=== PATIENT | male | born 1970 | race Hispanic/Latino ===

== ENCOUNTER 2018-08-03 15:33 | Emergency (ER) | payer SELFPAY ==
[2018-08-03 15:54] LABS: BASOPHILS % (AUTO) 0.8 % (0.0-5.0); EOSINOPHILS % (AUTO) 1.9 % (0.0-8.0); HEMATOCRIT 44.7 % (42-54); LYMPHOCYTES % (AUTO) 26.8 % (21.0-51.0); MEAN CORPUSCULAR HEMOGLOBIN 27.6 pg (27.0-33.0); MEAN CORPUSCULAR HGB CONC 33.2 g/dL (32.0-36.0); MEAN CORPUSCULAR VOLUME 83.2 fL (79-99); MONOCYTES % (AUTO) 6.5 % (3.0-13.0); PLATELET COUNT (AUTO) 269 K/uL (130-400); RED BLOOD CELL COUNT(AUTO) 5.38 MIL/uL (4.50-6.20); RED CELL DISTRIBUTION WIDTH 13.2 % (11.0-15.5); WHITE BLOOD COUNT (AUTO) 8.7 K/uL (4.8-10.8)
[2018-08-03] MEDS ORDERED: SODIUM CHLORIDE 0.9% 1000ML 1,000 ML IV ONE ×2 (16:02→17:20)
[2018-08-03 16:13] LABS: APPEARANCE,URINE CLEAR (CLEAR); BILIRUBIN,URINE NEGATIVE (NEGATIVE); COLOR,URINE YELLOW (YELLOW); GLUCOSE, URINE (UA) >=1000 mg/dL (NEGATIVE); KETONES,URINE NEGATIVE (NEGATIVE); LEUKOCYTE ESTERASE ,URINE NEGATIVE (NEGATIVE); NITRATE,URINE NEGATIVE (NEGATIVE); OCCULT BLOOD,URINE NEGATIVE (NEGATIVE); PROTEIN,URINE NEGATIVE (NEGATIVE); UROBILINOGEN,URINE 0.2 mg/dL (0.2-1.0)
[2018-08-03 16:40] LABS: AMPHET/METH SCREEN,URINE NEGATIVE (NEGATIVE); BARBITURATE SCREEN, URINE NEGATIVE (NEGATIVE); BENZODIAZEPINES SCREEN,URINE NEGATIVE (NEGATIVE); CANNABINOID SCREEN,URINE NEGATIVE (NEGATIVE); COCAINE SCREEN,URINE NEGATIVE (NEGATIVE); OPIATE SCREEN,URINE NEGATIVE (NEGATIVE); PHENCYCLIDINE SCREEN,URINE NEGATIVE (NEGATIVE)
[2018-08-03 16:54] LABS: ALBUMIN 3.7 g/dL (3.5-5.0); BILIRUBIN,TOTAL 0.3 mg/dL (0.2-1.0); CREATININE 0.9 mg/dL (0.5-1.5); POTASSIUM 3.9 mmol/L (3.5-5.1); TOTAL PROTEIN, SERUM 7.5 g/dL (6.0-8.3)
[2018-08-03 16:56] LABS: RBC,URINE None Seen /HPF (0-1)
[2018-08-03 16:57] LABS: BACTERIA,URINE None Seen /HPF (None Seen); SQUAMOUS EPITHELIAL CELL,UR None Seen /HPF (0-2); WBC,URINE 0-1 /HPF (0-1)
== END 2018-08-03 19:14 | disposition home or self-care (01) ==
LOC: EDH 15:33
DX: E11.65 Type 2 diabetes mellitus with hyperglycemia (principal); R03.0 Elevated blood-pressure reading, without diagnosis of hypertension; R74.8 Abnormal levels of other serum enzymes
CPT/HCPCS: 36415; 80053; 80305; 81001; 82550 ×2; 82948 ×2; 83874 ×2; 84484; 85025; 93005; 96360; 96361; 99285; J7030 ×2

== ENCOUNTER 2023-05-04 15:49 | Emergency (ER) | payer OTHER ==
[~2023-05-04] VITALS: Ht 172.7 cm; Wt 85.3 kg
[2023-05-04 16:22] LABS: BASOPHILS # (AUTO) 0.05 K/uL (0.00-0.20); BASOPHILS % (AUTO) 0.4 % (0.0-5.0); EOSINOPHILS # (AUTO) 0.35 K/uL (0.00-0.70); EOSINOPHILS % (AUTO) 2.6 % (0.0-8.0); HEMATOCRIT 36.9 % (42-54); IMMATURE GRANULOCYTE ABSOLUTE 0.06 K/uL (0-1); LYMPHOCYTES # (AUTO) 3.7 K/uL (1.0-4.8); LYMPHOCYTES % (AUTO) 27.3 % (21.0-51.0); MEAN CORPUSCULAR HGB CONC 32.5 g/dL (32.0-36.0); MEAN CORPUSCULAR VOLUME 79.9 fL (79-99); MONOCYTES # (AUTO) 0.8 K/uL (0.1-1.0); MONOCYTES % (AUTO) 6.2 % (3.0-13.0); NEUTROPHILS # (AUTO) 8.5 K/uL (1.8-7.7); NEUTROPHILS % (AUTO) 63.1 % (40.0-77.0); PLATELET COUNT (AUTO) 309 K/uL (130-400); RED BLOOD CELL COUNT(AUTO) 4.62 MIL/uL (4.50-6.20); RED CELL DISTRIBUTION WIDTH 14.9 % (11.0-15.5); WHITE BLOOD COUNT (AUTO) 13.5 K/uL (4.8-10.8)
[2023-05-04] MEDS ORDERED: HYDROXYZINE 25 MG TABLET PO ONE (16:30)
[2023-05-04 16:33] LABS: CREATININE 0.8 mg/dL (0.5-1.5)
[2023-05-04 16:39] LABS: ALBUMIN 3.5 g/dL (3.5-5.0); BILIRUBIN,TOTAL 0.5 mg/dL (0.2-1.0); MAGNESIUM 1.3 mg/dL (1.80-2.40); TOTAL PROTEIN, SERUM 6.9 g/dL (6.0-8.3)
[2023-05-04 16:43] LABS: APPEARANCE,URINE CLEAR (CLEAR); BILIRUBIN,URINE NEGATIVE (NEGATIVE); COLOR,URINE YELLOW (YELLOW); GLUCOSE, URINE (UA) NEGATIVE (NEGATIVE); KETONES,URINE NEGATIVE (NEGATIVE); LEUKOCYTE ESTERASE ,URINE NEGATIVE Leu/uL (NEGATIVE); NITRATE,URINE NEGATIVE (NEGATIVE); OCCULT BLOOD,URINE NEGATIVE (NEGATIVE); PH,URINE 5.5 (5.0-8.0); PROTEIN,URINE 10 mg/dL (NEGATIVE); UROBILINOGEN,URINE 0.2 mg/dL (0.2-1.0)
[2023-05-04 16:44] LABS: ADD UA MICROSCOPIC YES
[2023-05-04 16:47] LABS: BACTERIA,URINE RARE /HPF (None Seen); MUCUS,URINE RARE LPF (None Seen); WBC,URINE 0-1 /HPF (0-1)
[2023-05-04] MEDS ORDERED: 0.9%NACL 1000ML 1,000 ML IV ONE (17:00)
[2023-05-04] MEDS ORDERED: CEFTRIAXONE 1G VIAL IVPB ONE (17:00)
[2023-05-04 17:30] LABS: SARS-CoV-2, RNA, NAAT NEGATIVE SARS CoV-2 (NEGATIVE)
[2023-05-04 17:36] LABS: INFLUENZA TYPE A Negative For Type A (NEGATIVE)
[2023-05-04] MEDS ORDERED: MAGNESIUM OXIDE 400 MG TABLET PO ONE (18:00)
[2023-05-04] MEDS ORDERED: HYDR-3421 PO (18:02)
[2023-05-04 18:13] LABS: INFLUENZA TYPE B Positive For Type B (NEGATIVE)
[2023-05-04] MEDS ORDERED: OSEL75 PO (18:17)
[2023-05-04 18:42] VITALS: BP 118/68; PULSE 66; RESP 18; O2SAT 98
== END 2023-05-04 18:33 | disposition home or self-care (01) ==
LOC: EDH 15:49
DX: R21 Rash and other nonspecific skin eruption (principal); E83.42 Hypomagnesemia; I48.91 Unspecified atrial fibrillation; I10 Essential (primary) hypertension; E11.9 Type 2 diabetes mellitus without complications; E78.00 Pure hypercholesterolemia, unspecified; Z95.1 Presence of aortocoronary bypass graft; Z20.822 Contact with and (suspected) exposure to COVID-19
CPT/HCPCS: 99285; 96365; 71045; 87635; 83735; 84484; 80053; 85025; 87040 ×2; 87804 ×2; 83605; 81001; 36415; 93005; C9803; J7030; J0696

== ENCOUNTER 2024-02-10 16:50 | Emergency (ER) | payer BC, OTHER ==
[~2024-02-10] VITALS: Ht 172.7 cm; Wt 84.8 kg
[~2024-02-10 16:50] MED LIST: HYDR-3421 PO; OSEL75 PO
[2024-02-10 17:51] LABS: BASOPHILS # (AUTO) 0.04 K/uL (0.00-0.20); BASOPHILS % (AUTO) 0.3 % (0.0-5.0); EOSINOPHILS # (AUTO) 0.59 K/uL (0.00-0.70); EOSINOPHILS % (AUTO) 4.9 % (0.0-8.0); HEMATOCRIT 41.7 % (42-54); IMMATURE GRANULOCYTE ABSOLUTE 0.05 K/uL (0-1); LYMPHOCYTES # (AUTO) 2.6 K/uL (1.0-4.8); LYMPHOCYTES % (AUTO) 21.9 % (21.0-51.0); MEAN CORPUSCULAR HGB CONC 32.1 g/dL (32.0-36.0); MEAN CORPUSCULAR VOLUME 84.1 fL (79-99); MONOCYTES # (AUTO) 0.8 K/uL (0.1-1.0); MONOCYTES % (AUTO) 6.7 % (3.0-13.0); NEUTROPHILS # (AUTO) 7.9 K/uL (1.8-7.7); NEUTROPHILS % (AUTO) 65.8 % (40.0-77.0); PLATELET COUNT (AUTO) 310 K/uL (130-400); RED BLOOD CELL COUNT(AUTO) 4.96 MIL/uL (4.50-6.20)
[2024-02-10 18:06] LABS: CREATININE 0.9 mg/dL (0.5-1.3); POTASSIUM 3.9 mmol/L (3.5-5.1)
[2024-02-10 18:08] LABS: B-TYPE NATRIURETIC PEPTIDE 40 pg/mL (0-100)
[2024-02-10] MEDS ORDERED: SULF1TAB42 PO (20:04)
[2024-02-10 20:51] VITALS: BP 121/72; PULSE 86; RESP 18; O2SAT 100
[2024-02-10] MEDS: CEFTRIAXONE 1G VIAL IM ONE (20:55)
== END 2024-02-10 21:08 | disposition home or self-care (01) ==
LOC: EDH 16:50
DX: E11.621 Type 2 diabetes mellitus with foot ulcer (principal); L97.519 Non-pressure chronic ulcer of other part of right foot with unspecified severity; E78.00 Pure hypercholesterolemia, unspecified; Z90.49 Acquired absence of other specified parts of digestive tract; Z95.1 Presence of aortocoronary bypass graft
CPT/HCPCS: 99284; 96374; 93971; 80048; 83880; 85025; 87040 ×2; 83605; 36415; J0696

== ENCOUNTER 2024-04-10 13:47 | Emergency (ER) | payer BC ==
[~2024-04-10] VITALS: Ht 172.7 cm; Wt 85.3 kg
[~2024-04-10 13:47] MED LIST changes: +ACET-2806 PO; +SULF1TAB42 PO
[2024-04-10] MEDS ORDERED: GABA100C PO (16:24)
[2024-04-10] MEDS: GABAPENTIN 100 MG CAPSULE PO ONE (16:30)
[2024-04-10] MEDS: ACETAMINOPHEN 325 MG TAB PO ONE (16:31)
[2024-04-10 16:43] VITALS: BP 139/71; PULSE 82; RESP 16; O2SAT 99
[2024-04-10] MEDS: HYDROCODONE/ACETAMINOPHEN 5/325 MG TAB PO ONE (16:52)
[2024-04-10] MEDS ORDERED: GABAPENTIN 100 MG CAPSULE PO SCH (21:00)
== END 2024-04-10 18:24 | disposition home or self-care (01) ==
LOC: EDH 13:47
DX: G62.9 Polyneuropathy, unspecified (principal); L97.519 Non-pressure chronic ulcer of other part of right foot with unspecified severity; E11.621 Type 2 diabetes mellitus with foot ulcer; M79.605 Pain in left leg; I48.91 Unspecified atrial fibrillation; I10 Essential (primary) hypertension; F17.200 Nicotine dependence, unspecified, uncomplicated; Z90.49 Acquired absence of other specified parts of digestive tract; Z95.1 Presence of aortocoronary bypass graft
CPT/HCPCS: 93971

== ENCOUNTER 2024-09-13 19:24 | Emergency (ER) | payer BC ==
[~2024-09-13] VITALS: Ht 170.2 cm; Wt 86.2 kg
[~2024-09-13 19:24] MED LIST changes: -ACET-2806 PO; +AMOX1TAB15 PO; +APIX5TAB PO; +ATOR40TA71 PO; +DONE5TAB33 PO; +EMPA10TA PO; +GABA-529 PO; +GENT30OI2 TP; -HYDR-3421 PO; +METF-444 PO; +METO25TA6 PO; +NITR0.4T50 SL; -OSEL75 PO; +SILD50TA PO; -SULF1TAB42 PO; +[UNRECOGNIZED DRUG - OTHER]
[2024-09-13 19:25] VITALS: TEMP 97.8
--- NOTE | 2024-09-13 19:30 | NUR ---
UA CUP PROVIDED
--- NOTE | 2024-09-13 19:56 | EKG ---
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
[2024-09-13 20:10] LABS: APPEARANCE,URINE CLEAR (CLEAR); BILIRUBIN,URINE NEGATIVE (NEGATIVE); COLOR,URINE COLORLESS (YELLOW); GLUCOSE, URINE (UA) >=1000 mg/dL (NEGATIVE); KETONES,URINE NEGATIVE (NEGATIVE); LEUKOCYTE ESTERASE ,URINE NEGATIVE Leu/uL (NEGATIVE); NITRATE,URINE NEGATIVE (NEGATIVE); OCCULT BLOOD,URINE NEGATIVE (NEGATIVE); PROTEIN,URINE NEGATIVE (NEGATIVE); UROBILINOGEN,URINE 0.2 mg/dL (0.2-1.0)
[2024-09-13 20:12] LABS: ADD UA MICROSCOPIC YES
[2024-09-13 20:13] LABS: MUCUS,URINE RARE LPF (None Seen); WBC,URINE 0-1 /HPF (0-1)
--- NOTE | 2024-09-13 20:20 | HMCIMG ---
INDICATION: CHEST PAIN TECHNIQUE: CHEST 1VW COMPARISON: 06/06/2024 FINDINGS/IMPRESSION: No acute consolidation or pleural effusion. Cardiac silhouette is within normal limits. Mild degenerative changes of the spine. Sternotomy wires are noted.
[2024-09-13 20:29] LABS: BASOPHILS # (AUTO) 0.05 K/uL (0.00-0.20); BASOPHILS % (AUTO) 0.4 % (0.0-5.0); EOSINOPHILS # (AUTO) 0.75 K/uL (0.00-0.70); EOSINOPHILS % (AUTO) 5.4 % (0.0-8.0); HEMATOCRIT 39.4 % (42-54); IMMATURE GRANULOCYTE ABSOLUTE 0.04 K/uL (0-1); LYMPHOCYTES # (AUTO) 2.5 K/uL (1.0-4.8); LYMPHOCYTES % (AUTO) 18.1 % (21.0-51.0); MEAN CORPUSCULAR HEMOGLOBIN 26.1 pg (27.0-33.0); MEAN CORPUSCULAR HGB CONC 31.5 g/dL (32.0-36.0); MEAN CORPUSCULAR VOLUME 82.9 fL (79-99); MONOCYTES # (AUTO) 1.1 K/uL (0.1-1.0); MONOCYTES % (AUTO) 7.8 % (3.0-13.0); NEUTROPHILS # (AUTO) 9.5 K/uL (1.8-7.7); PLATELET COUNT (AUTO) 292 K/uL (130-400); RED BLOOD CELL COUNT(AUTO) 4.75 MIL/uL (4.50-6.20); RED CELL DISTRIBUTION WIDTH 12.8 % (11.0-15.5); WHITE BLOOD COUNT (AUTO) 13.9 K/uL (4.8-10.8)
[2024-09-13 20:41] LABS: CREATININE 1.4 mg/dL (0.5-1.3); POTASSIUM 3.9 mmol/L (3.5-5.1)
[2024-09-13 20:45] LABS: ALBUMIN 3.1 g/dL (3.5-5.0); BILIRUBIN,DIRECT 0.1 mg/dL (0.0-0.3); BILIRUBIN,TOTAL 0.7 mg/dL (0.2-1.0); TOTAL PROTEIN, SERUM 6.7 g/dL (6.0-8.3)
[2024-09-13 21:06] LABS: B-TYPE NATRIURETIC PEPTIDE 30 pg/mL (0-100)
[2024-09-13] MEDS ORDERED: IOHEXOL-350 75 ML VIAL IV ONE (21:33)
[2024-09-13 22:10] VITALS: BP 97/68; PULSE 97; RESP 18; O2SAT 100
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
[2024-09-13 23:22] LABS: HIV 1&2 ANTIBODY Non-Reactive (Negative)
[2024-09-13 23:23] LABS: HIV-1 p24 Antigen Non-Reactive (Negative)
--- NOTE | 2024-09-13 23:44 | HMCIMG ---
CT ABDOMEN/PELVIS W/CONTRAST HISTORY: Abdominal pain COMPARISON: None TECHNIQUE: Multiple sequential axial images of the abdomen and pelvis were obtained from the dome of the diaphragm through symphysis pubis. Patient was not given contrast through intravenous route. Oral contrast was not given. FINDINGS: No pleural effusion is seen bilaterally. There is no evidence of parenchymal disease or pulmonary nodule of the visualized lower lungs. Degenerative changes of the thoracolumbar spine are present. The heart is not enlarged. The liver, spleen, adrenal glands and pancreas are unremarkable. There is no evidence of hydronephrosis bilaterally. No evidence of renal stone is seen. Fecal material is seen in the colon. There are normal size retroperitoneal and mesenteric lymph nodes. No ascites is seen. Atherosclerotic changes are present. Appendix is not seen. Prostate measures 4.7 x 3.8 cm. There is minimal diverticulosis. Pelvic sidewalls are symmetric bilaterally. Bladder is well distended without wall thickening. IMPRESSION: 1. Fecal material is seen in the colon. There is minimal diverticulosis. CT was performed with one or more following dose reduction techniques: automated exposure control, adjustment of the mA and kv according to patient's size, or use of a iterative reconstruction technique.
[2024-09-14] MEDS ORDERED: LEVO-70 PO (00:05)
[2024-09-14] MEDS: levoFLOXacin 500 MG TABLET PO SCH (00:19)
[2024-09-14] MEDS: levoFLOXacin 500 MG TABLET ONE (00:19)
== END 2024-09-14 00:22 | disposition home or self-care (01) ==
LOC: EDH 19:24
DX: K59.00 Constipation, unspecified (principal); K57.30 Diverticulosis of large intestine without perforation or abscess without bleeding; F17.200 Nicotine dependence, unspecified, uncomplicated; I10 Essential (primary) hypertension; F03.90 Unspecified dementia, unspecified severity, without behavioral disturbance, psychotic disturbance, mood disturbance, and anxiety; E11.9 Type 2 diabetes mellitus without complications; Z79.01 Long term (current) use of anticoagulants; Z79.84 Long term (current) use of oral hypoglycemic drugs; Z79.899 Other long term (current) drug therapy; Z86.73 Personal history of transient ischemic attack (TIA), and cerebral infarction without residual deficits; Z90.49 Acquired absence of other specified parts of digestive tract; Z95.1 Presence of aortocoronary bypass graft
CPT/HCPCS: 99284; 74177; 71045; 82550; 80076; 84484; 80048; 83880; 83690; 85025; 86701; 87390; 81001; 36415; 93005; Q9967

== ENCOUNTER 2024-09-19 14:43 | Emergency (ER) | payer BC ==
[~2024-09-19] VITALS: Ht 170.2 cm; Wt 86.2 kg
[~2024-09-19 14:43] MED LIST changes: +LEVO-70 PO
[2024-09-19 14:49] VITALS: TEMP 100.8
--- NOTE | 2024-09-19 14:54 | ERN ---
ED Note History of Present Illness Stated Complaint: FATIGUE,COUGHING,SWEATING,RUNNY NOSE Chief Complaint: Weakness Time Seen by MD: 14:47 Dictation: PATIENT IS A 54-YEAR-OLD MALE COMING IN TODAY WITH FLU-LIKE SYMPTOMS TO INCLUDE FEVER CHILLS BODY ACHES SORE THROAT WITH PAINFUL SWALLOWING ONSET THIS MORNING. HE STATES HE ALSO HAD NAUSEA VOMITING TIMES ONCE THIS MORNING. DID NOT CHECK HIS BLOOD SUGAR THIS MORNING. NO CHEST PAIN NO BACK PAIN NO SOB. SAID HE FEELS TIRED. STATES HE IS SCHEDULED FOR AN ANGIOPLASTY AT [facility] BY DR. BENNETT NEXT SUNDAY. Allergies: Coded Allergies: No Known Allergies (Unverified Allergy, Unknown, 05/04/23) Home Meds Active Scripts Amoxicillin/Potassium Clav (Amox Tr-K Clv 875-125 mg Tab) 875 Mg-125 Mg Tablet, 1 EACH PO BID for 10 Days, #20 TAB 0 Refills Prov:BENEDICTO JOHNSON NP 09/19/24 Levofloxacin (Levofloxacin) 500 Mg Tablet, 500 MG PO DAILY for 10 Days, #10 TAB Prov:SHABNAM TILLMAN MD 09/14/24 Nitroglycerin (Nitroglycerin) 0.4 Mg Tab.subl, 0.4 MG SL ONCE PRN for PAIN LEVEL 6 TO 10, #6 TAB.SL Prov:DENISE JUAREZ MD 06/10/24 Reported Medications Sildenafil Citrate (Viagra) 50 Mg Tablet, 50 MG PO AD 06/14/24 Atorvastatin Calcium (Atorvastatin Calcium) 40 Mg Tablet, 40 MG PO HS, TAB 06/14/24 Gentamicin Sulfate (Gentamicin Sulfate) 0.1 % Oint...g., 30 GM TP BID 06/08/24 [erythro opthal 0.5] No Conflict Check, 1 INCH .AD HS 06/08/24 Amoxicillin/Potassium Clav (Amox Tr-K Clv 500-125 mg Tab) 500 Mg-125 Mg Tablet, 1 EACH PO BID, TAB 06/08/24 Gabapentin (Gabapentin) 100 Mg Capsule, 100 MG PO TID, CAP 06/08/24 Metformin HCl (Metformin HCl) 500 Mg Tablet, 500 MG PO BID, TAB 06/08/24 Empagliflozin (Jardiance) 10 Mg Tablet, 10 MG PO DAILY, TAB 06/08/24 Metoprolol Tartrate (Metoprolol Tartrate) 25 Mg Tablet, 25 MG PO BID, TAB 06/08/24 Apixaban (Eliquis) 5 Mg Tablet, 5 MG PO BID, TAB 06/08/24 Donepezil HCl (Donepezil HCl) 5 Mg Tablet, 5 MG PO HS, TAB 06/08/24 Past Medical History Past Medical History: A-Fib, Cancer, CVA, Diabetes-Type II, Heart Disease, Hypertension, [place], Prostatitis Surgical History: Appendectomy, CABG Surgical History Other: RT FOOT SX Social History: Smokers, Negative, Lives with family RN Note Reviewed/Agreed w/PFSH: Yes Review of System Dictation CONSTITUTIONAL: NEGATIVE EXCEPT FOR HPI FEVER CHILLS HEAD/FACE: NEGATIVE EXCEPT FOR HPI EENT: NEGATIVE EXCEPT FOR HPI CLEAR RHINITIS WITH A SORE THROAT RESPIRATORY: NEGATIVE EXCEPT FOR HPI COUGH GASTROINTESTINAL/ABDOMINAL: NEGATIVE EXCEPT FOR HPI GENITOURINARY: NEGATIVE EXCEPT FOR HPI MUSCULOSKELETAL: NEGATIVE EXCEPT FOR HPI INTEGUMENTARY: NEGATIVE EXCEPT FOR HPI NEUROLOGICAL/PSYCH: NEGATIVE EXCEPT FOR HPI HEMATOLOGIC/LYMPHATIC: NEGATIVE EXCEPT FOR HPI ALL SYSTEMS NEGATIVE, EXCEPT NOTED ABOVE. 13 POINT REVIEW OF SYSTEMS ASSESSED AND ALL NEGATIVE EXCEPT FOR ABOVE. Initial Vital Sign VS Vital Signs Date Time Temp Pulse Resp B/P (MAP) Pulse Ox O2 Delivery O2 Flow Rate FiO2 09/19/24 14:49 100.8 109 20 149/75 100 Room Air 0 09/19/24 18:17 21 Physical Exam Dictation VITAL SIGNS REVIEWED GENERAL APPEARANCE: ALERT, ORIENTED X 3, MILD ACUTE DISTRESS, WELL DEVELOPED, NOURISHED. HEAD AND FACE: NON-TRAUMATIC. EYES: PERRL, PINK CONJUNCTIVAS, EYELID NO TRAUMA, ANTERIOR CHAMBER WITH ARCUS SENILIS. EARS: PINNAS INTACT AND NO SIGNS OF TRAUMA OR ERYTHEMA EAR CANALS CLEAR AND NO DISCHARGE TM NO ERYTHEMA NOSE: CLEAR DISCHARGE, NO BLEEDING. OROPHARYNX: MOUTH NORMAL, TONGUE PINK, PHARYNX CLEAR MILD PHARYNGEAL ERYTHEMA, TONSILS NO EXUDATES, NO ABSCESSES NOTED, MUCOUS MEMBRANE MOIST UVULA MIDLINE, VOICE IS CLEAR NECK: SUPPLE, NON-TENDER, NO THYROMEGALY, NO MASSES, NO JVD, NO BRUITS BREAST:DEFERRED CHEST:NO TENDERNESS, NO CREPITUS, NO PARADOXICAL MOVEMENT, NO RETRACTIONS LUNGS:CLEAR, WELL-VENTILATED, SYMMETRIC, NO RALES, NO WHEEZING, NO RHONCHI, NO STRIDOR, GOOD BREATH SOUNDS BILATERALLY HEART: REGULAR RATE, REGULAR RHYTHM, NO MURMUR, NO GALLOPS VASCULAR: NO PERIPHERAL EDEMA, ABDOMEN: SOFT, POSITIVE BOWEL SOUNDS, NONDISTENDED, NO GUARDING, NONTENDER, NO REBOUND, NO MASSES NO HEPATOMEGALY, NO SPLENOMEGALY, NO CHRISTIAN'S SIGN, NO HERNIAS. RECTAL: DEFERRED GENITAL: DEFERRED NEUROLOGICAL: NORMAL SPEECH, MOTOR FUNCTION INTACT, SENSORY FUNCTION INTACT MUSCULOSKELETAL: NECK NONTENDER, FULL RANGE OF MOTION, BACK NONTENDER, FULL RANGE OF MOTION, EXTREMITIES: NONTENDER, FULL RANGE OF MOTION SKIN: COLOR PINK, DRY, NO TURGOR, NO RASH, NO LACERATIONS, NO ABRASIONS, NO CONTUSIONS. LYMPHATIC: DEFERRED Results (Laboratory/Radiology) Laboratory/Radiology Laboratory Tests Test 09/19/24 14:58 09/19/24 15:01 09/19/24 16:48 Influenza Type A Antigen Negative For Type A Influenza Type B Antigen Negative For Type B SARS-CoV-2 Antigen (Rapid) PRESUMPTIVE NEGATIVE Group A Streptococcus Rapid negative (NEGATIVE) White Blood Count 14.1 K/uL (4.8-10.8) H Red Blood Count 5.15 MIL/uL (4.50-6.20) Hemoglobin 13.3 g/dL (14.0-18.0) L Hematocrit 41.7 % (42-54) L Mean Corpuscular Volume 81.0 fL (79-99) Mean Corpuscular Hemoglobin 25.8 pg (27.0-33.0) L Mean Corpuscular Hemoglobin Concent 31.9 g/dL (32.0-36.0) L Red Cell Distribution Width 12.8 % (11.0-15.5) Platelet Count 334 K/uL (130-400) Mean Platelet Volume 10.3 fL (7.5-10.5) Immature Granulocyte % (Auto) 0.4 % (0-1) Neutrophils (%) (Auto) 86.7 % (40.0-77.0) H Lymphocytes (%) (Auto) 6.1 % (21.0-51.0) L Monocytes (%) (Auto) 5.5 % (3.0-13.0) Eosinophils (%) (Auto) 0.9 % (0.0-8.0) Basophils (%) (Auto) 0.4 % (0.0-5.0) Neutrophils # (Auto) 12.2 K/uL (1.8-7.7) H Lymphocytes # (Auto) 0.9 K/uL (1.0-4.8) L Monocytes # (Auto) 0.8 K/uL (0.1-1.0) Eosinophils # (Auto) 0.12 K/uL (0.00-0.70) Basophils # (Auto) 0.06 K/uL (0.00-0.20) Absolute Immature Granulocyte (auto 0.06 K/uL (0-1) Nucleated Red Blood Cells 0.0 % (0.0-0.19) White Cell Morphology Comment See comments Sodium Level 141 mmol/L (136-145) Potassium Level 3.5 mmol/L (3.5-5.1) Chloride Level 101 mmol/L (101-111) Carbon Dioxide Level 28 mmol/L (21-32) Blood Urea Nitrogen 11 mg/dL (7-18) Creatinine 1.0 mg/dL (0.5-1.3) Glomerular Filtration Rate Calc 90 mL/min (>90) Random Glucose 175 mg/dL (70-105) H Lactic Acid Level 2.0 mmol/L (0.8-2.5) Total Calcium 8.9 mg/dL (8.5-10.1) Troponin I High Sensitivity 6 ng/L (4-75) Urine Color LIGHT-YELLOW (YELLOW) Urine Appearance CLEAR (CLEAR) Urine pH 5.0 (5.0-8.0) Urine Specific [place] 1.035 (1.001-1.031) Urine Protein NEGATIVE mg/dL (NEGATIVE) Urine Glucose (UA) >=1000 mg/dL (NEGATIVE) H Urine Ketones NEGATIVE mg/dL (NEGATIVE) Urine Occult Blood NEGATIVE (NEGATIVE) Urine Nitrate NEGATIVE (NEGATIVE) Urine Bilirubin NEGATIVE mg/dL (NEGATIVE) Urine Urobilinogen 0.2 mg/dL (0.2-1.0) Urine Leukocyte Esterase NEGATIVE Aaron/uL Urine RBC 0-1 /HPF (0-1) Urine WBC 0-1 /HPF (0-1) Urine Bacteria None /HPF (None Seen) CHEST 1VW REASON: SHORTNESS A BREATH COMPARISON: 09/13/2024 FINDINGS: Single view of the chest was obtained. Lungs are clear. Heart size is normal. There is no pulmonary vascular congestion. Mediastinum and bony thorax appear unremarkable. There is been previous median sternotomy. IMPRESSION: 1. No acute process seen in the chest. Labs Reviewed?: Yes ED Course ED Course Orders Procedure Category Date Status Time Covid19 (Sars Antigen LAB 09/19/24 Complete Rapid) 14:50 Influenza Type A & B, LAB 09/19/24 Complete Rapid 14:50 Rapid (Group A Strep) LAB 09/19/24 Complete 14:50 Cbc With Differential LAB 09/19/24 Complete 14:50 Blood Cult TARAN 09/19/24 In Process 14:50 Urinalysis Profile LAB 09/19/24 Complete 14:50 Troponin I High LAB 09/19/24 Complete Sensitivity 14:50 Lactic Acid LAB 09/19/24 Complete 14:50 Basic Metabolic Panel LAB 09/19/24 Complete 14:50 Chest 1vw RAD 09/19/24 Resulted 14:50 Ibuprofen 800 Mg Tab PHA 09/19/24 Complete (Motrin) 15:00 0.9%Nacl 1000ml (Ns PHA 09/19/24 Complete 1000ml) 15:00 Amox/Clav 875/125mg PHA 09/19/24 Complete Tab (Augmentin 875-1 17:30 Current Medications Medications (Trade) Dose Ordered Sig/Greer Route PRN Reason Start Time Stop Time Status Last Admin Dose Admin Amoxicillin/ Clavulanate Potassium (Augmentin 875-125 Tablet) 1 each ONCE ONCE PO 09/19/24 17:30 09/19/24 17:31 DC 09/19/24 18:01 Ibuprofen (moTRIN) 800 mg ONCE ONCE PO 09/19/24 15:00 09/19/24 15:01 DC 09/19/24 15:07 Sodium Chloride 1,000 ml @ 0 mls/hr ONCE ONCE IV 09/19/24 15:00 09/19/24 15:01 DC 09/19/24 15:03 Vital Signs Date Time Temp Pulse Resp B/P (MAP) Pulse Ox O2 Delivery O2 Flow Rate FiO2 09/19/24 18:17 96 18 118/68 100 Room Air* 0 21 09/19/24 14:49 100.8 109 20 149/75 100 Room Air 0 1710, VITAL SIGNS ARE STABLE PATIENT IS HEMODYNAMICALLY STABLE. NO FEVER AT THIS TIME NO ELEVATED LACTIC ACID PATIENT WILL BE DISCHARGED HOME TO FOLLOW UP WITH HIS PRIMARY CARE DOCTOR IN 1-2 DAYS Medical Decision Making MDM MDM: DIFFERENTIAL DIAGNOSIS: FLU/COVID/STREP/UTI/SEPS IS/PNEUMONIA/BRONCHITIS/DKA/ELECTROLYTE IMBALANCE/ RATIONALE: TESTS CONSIDERED AND ORDERED SECONDARY TO SHARED DECISION MAKING I NCLUDE: DEHYDRATION RADIOLOGY/LABS PREVIOUS OUTSIDE RECORDS REVIEWED: OLD ER VISITS. RISK OF COMPLICATION AND/OR MORBIDITY OR MORTALITY OF PATIENT MANAGEMENT: NONE MEDICATIONS-PER MEDICATION RECONCILIATION NEED FOR HOSPITALIZATION: PATIENT DOES NOT MEET CRITERIA FOR HOSPITALIZATION. NO NEED FOR EMERGENCY MAJOR/MINOR SURGERY: NO THERE ARE NO SOCIAL CONCERNS WITH THIS PATIENT. PRESCRIPTION DRUG MANAGEMENT PRESCRIPTIONS WILL INCLUDE SYMPTOMATIC CARE PATIENT'S PRIOR EXTERNAL MEDICAL RECORDS FROM OTHER ER VISITS WERE REVIEWED BY ME INDICATED. PRIOR TESTING AND RESULTS FROM PREVIOUS VISITS WERE REVIEWED. PRIOR TESTS WERE TAKEN INTO ACCOUNT WITH MEDICAL DECISION MAKING AND RESOURCE UTILIZATION, INDEPENDENT HISTORIAN/HISTORIANS WERE USED TO OBTAIN COMPLETE MEDICAL HISTORY. I INDEPENDENTLY INTERPRETED THE TEST THAT WERE PERFORMED, RESULTS WERE REVIEWED BY ME AND CONSIDERED FINDINGS ON RADIOLOGY IF ORDERED. MEDICAL MANAGEMENT AND EXAMINATION INTERPRETATION DISCUSSIONS WERE HAD BY ME WI TH OTHER QUALIFIED HEALTHCARE PROFESSIONALS INDICATED FOR THE PATIENT'S CARE. DX & DISP Disposition: Discharge Departure Impression: Primary Impression: Acute pharyngitis, unspecified Additional Impression: Fever Condition: Stable Scripts Amoxicillin/Potassium Clav (Amox Tr-K Clv 875-125 mg Tab) 875 Mg-125 Mg Tablet 1 EACH PO BID for 10 Days, #20 TAB 0 Refills Prov: BENEDICTO JOHNSON UPHOLSTERY AUTO TRIMMER 09/19/24 Additional Instructions: FOLLOW-UP WITH PRIMARY CARE PROVIDER IN 1 TO 2 DAYS. TAKE MEDICATIONS DIRECTED HERE IN THE EMERGENCY ROOM. OKAY TO CONTINUE HOME MEDICATIONS UNLESS OTHERWISE DISCUSSED DURING YOUR VISIT IN THE EMERGENCY ROOM TODAY. RETURN TO YOUR NEAREST EMERGENCY ROOM IF SYMPTOMS WORSEN OR IF THERE IS NO IMPROVEMENT. CALL 911 IF YOU NEED IMMEDIATE ASSISTANCE. TAKE TYLENOL OR MOTRIN [id number] NEEDED AND IF NO CONTRAINDICATIONS ARE PRESENT. INCREASE ORAL HYDRATION. A WOUND CULTURE OR URINE CULTURE WAS ORDERED HERE IN THE EMERGENCY ROOM DEPARTMENT PLEASE FOLLOW-UP WITH PRIMARY CARE PROVIDER AND ADVISE THEM TO GET REPEAT PORTS FROM OUR FACILITY. IF YOU HAD ANY MAIKEL WRAP/SPLINTS THAT WERE APPLIED HERE, PLEASE DO NOT REMOVE THEM UNTIL YOU SEE YOUR PRIMARY CARE OR SPECIALTY. TAKE ANTIBIOTICS DIRECTED UNTIL GONE. , INCREASE YOUR WATER INTAKE. , FOLLOW UP WITH YOUR PRIMARY CARE DOCTOR IN 1-2 DAYS. Referrals: PEYTON NAGEL (PCP) Time of Disposition: 17:16 I have reviewed the case, and I agree with, Diagnosis and Plan I performed a substantive portion of the visit. I have reviewed and personally made and approve the management plan that is documented in the notes by myself with POPEYE/resident. I acknowledged full responsibility for the patient's m anagement plan. BENEDICTO JOHNSON NP Sep 19, 2024 14:54 ESEQUIEL PATTEN DO Sep 20, 2024 17:14
--- NOTE | 2024-09-19 14:56 | NUR ---
PT JUST NOW PLACED IN MY ED BED 11. CALLED A SEPSIS ALERT
[2024-09-19] MEDS: 0.9%NACL 1000ML 1,000 ML IV ONE (15:03)
[2024-09-19] MEDS: ibuPROFEN 800 MG TAB PO ONE (15:07)
--- NOTE | 2024-09-19 15:07 | NUR ---
STREP SWAB COLLECTED, LABELED AND SENT TO LAB
[2024-09-19 15:15] LABS: BASOPHILS # (AUTO) 0.06 K/uL (0.00-0.20); BASOPHILS % (AUTO) 0.4 % (0.0-5.0); EOSINOPHILS # (AUTO) 0.12 K/uL (0.00-0.70); EOSINOPHILS % (AUTO) 0.9 % (0.0-8.0); HEMATOCRIT 41.7 % (42-54); IMMATURE GRANULOCYTE ABSOLUTE 0.06 K/uL (0-1); LYMPHOCYTES # (AUTO) 0.9 K/uL (1.0-4.8); LYMPHOCYTES % (AUTO) 6.1 % (21.0-51.0); MEAN CORPUSCULAR HEMOGLOBIN 25.8 pg (27.0-33.0); MEAN CORPUSCULAR HGB CONC 31.9 g/dL (32.0-36.0); MONOCYTES # (AUTO) 0.8 K/uL (0.1-1.0); MONOCYTES % (AUTO) 5.5 % (3.0-13.0); NEUTROPHILS # (AUTO) 12.2 K/uL (1.8-7.7); NEUTROPHILS % (AUTO) 86.7 % (40.0-77.0); PLATELET COUNT (AUTO) 334 K/uL (130-400); RED BLOOD CELL COUNT(AUTO) 5.15 MIL/uL (4.50-6.20); RED CELL DISTRIBUTION WIDTH 12.8 % (11.0-15.5); WHITE BLOOD COUNT (AUTO) 14.1 K/uL (4.8-10.8)
--- NOTE | 2024-09-19 15:27 | HMCIMG ---
CHEST 1VW REASON: SHORTNESS A BREATH COMPARISON: 09/13/2024 FINDINGS: Single view of the chest was obtained. Lungs are clear. Heart size is normal. There is no pulmonary vascular congestion. Mediastinum and bony thorax appear unremarkable. There is been previous median sternotomy. IMPRESSION: 1. No acute process seen in the chest.
[2024-09-19 15:28] LABS: POTASSIUM 3.5 mmol/L (3.5-5.1)
[2024-09-19 15:33] LABS: RAPID GROUP A STREP negative (NEGATIVE)
[2024-09-19 15:43] LABS: COVID19 (SARS ANTIGEN RAPID) PRESUMPTIVE NEGATIVE (NEGATIVE); INFLUENZA TYPE A Negative For Type A (NEGATIVE); INFLUENZA TYPE B Negative For Type B (NEGATIVE)
[2024-09-19 17:09] LABS: APPEARANCE,URINE CLEAR (CLEAR); BILIRUBIN,URINE NEGATIVE (NEGATIVE); COLOR,URINE LIGHT-YELLOW (YELLOW); GLUCOSE, URINE (UA) >=1000 mg/dL (NEGATIVE); KETONES,URINE NEGATIVE (NEGATIVE); LEUKOCYTE ESTERASE ,URINE NEGATIVE Leu/uL (NEGATIVE); NITRATE,URINE NEGATIVE (NEGATIVE); OCCULT BLOOD,URINE NEGATIVE (NEGATIVE); PROTEIN,URINE NEGATIVE (NEGATIVE); UROBILINOGEN,URINE 0.2 mg/dL (0.2-1.0)
[2024-09-19 17:10] LABS: ADD UA MICROSCOPIC YES
[2024-09-19 17:12] LABS: RBC,URINE 0-1 /HPF (0-1); WBC,URINE 0-1 /HPF (0-1)
[2024-09-19] MEDS ORDERED: AMOX1TAB16 PO (17:17)
[2024-09-19] MEDS: AMOX/CLAV 875/125MG TAB PO ONE (18:01)
[2024-09-19 18:17] VITALS: BP 118/68; PULSE 96; RESP 18; O2SAT 100
== END 2024-09-19 18:14 | disposition home or self-care (01) ==
LOC: EDH 14:43
DX: J02.9 Acute pharyngitis, unspecified (principal); R50.9 Fever, unspecified; E11.9 Type 2 diabetes mellitus without complications; F17.200 Nicotine dependence, unspecified, uncomplicated; I10 Essential (primary) hypertension; Z20.822 Contact with and (suspected) exposure to COVID-19; Z79.01 Long term (current) use of anticoagulants; Z79.84 Long term (current) use of oral hypoglycemic drugs; Z79.899 Other long term (current) drug therapy; Z86.73 Personal history of transient ischemic attack (TIA), and cerebral infarction without residual deficits; Z90.49 Acquired absence of other specified parts of digestive tract; Z95.1 Presence of aortocoronary bypass graft
CPT/HCPCS: 99283; 96360; 96361; 71045; 87426; 84484; 80048; 85025; 87040 ×2; 87880; 87804 ×2; 83605; 81001; 36415; J7030